=== PATIENT | female | born 1995 | race Caucasian/White ===

== ENCOUNTER 2023-11-15 14:56 | Emergency (ER) | payer BC, OTHER ==
[2023-11-15] MEDS ORDERED: LIDOCAINE 2% W/EPI 1:200,000 MPF 20 ML VIAL IM ONE (17:11)
[2023-11-15] MEDS ORDERED: TDAP (DIPHTH,PERTUSS(ACELL),TET VAC) 0.5 ML VIAL IMVAC ONE (17:26)
--- NOTE | 2023-11-15 21:05 | EDPHYS ---
Physician Documentation [facility] Name: Chinyere Hunt Age: 28 yrs Sex: Female : 1995 Arrival Date: 11/15/2023 Time: 14:56 Bed IW2 Private MD: ED Physician Stuart Ramirez HPI: 11/14 15:45 This 28 yrs old Female presents to ER via Ambulatory with complaints of Hit With Tree cp Limb. 15:45 The patient or guardian reports injury, a laceration. The complaints affect the left cp side of the back of head. Context of injury: resulted from fallen tree limb. Onset: The symptoms/episode began/occurred just prior to arrival. Associated signs and symptoms: Loss of consciousness: This patient did not experience any loss of consciousness. Pertinent positives: headache, nausea, Pertinent negatives: neck pain, vomiting, weakness in extremities, generalized weakness. Historical: - Allergies: 15:25 Sulfa (Sulfonamide Antibiotics); as6 - PMHx: 15:25 None; as6 - PSHx: 15:25 ankle; as6 - Immunization history:: Adult Immunizations up to date. - Infectious Disease History:: Denies. - Social history:: Smoking status: Reported history of juuling and/or vaping. ROS: 15:50 Skin: Positive for laceration(s), of the scalp, cp 15:50 Constitutional: HX per HPI cp 15:50 Constitutional: Negative for fever, 15:50 Abdomen/GI: Positive for nausea, Negative for vomiting, 15:50 Neuro: Positive for headache, 15:50 All other systems are negative, Exam: 15:55 Constitutional: The patient appears in no acute distress, alert, awake, non-toxic, well cp developed, well nourished, 15:55 Head/face: Noted is a laceration(s), that is linear, of the left side of the back of cp head, 15:55 Eyes: Periorbital structures: appear normal, Pupils: equal, round, and reactive to light and accomodation, Extraocular movements: intact throughout, Lids and lashes: appear normal, bilaterally, 15:55 ENT: External ear(s): are unremarkable, Nose: is normal, Mouth: Lips: moist, Oral mucosa: pink and intact, moist, 15:55 Neck: C-spine: vertebral tenderness, is not appreciated, crepitus, is not appreciated, ROM/movement: is normal, is supple, without pain, no range of motions limitations, 15:55 Chest/axilla: Inspection: normal, 15:55 Cardiovascular: Rate: normal, 15:55 Respiratory: the patient does not display signs of respiratory distress, Respirations: normal, no use of accessory muscles, no retractions, labored breathing, is not present, 15:55 Neuro: Orientation: to person, place \T\ time. Mentation: is normal, Motor: moves all fours, strength is normal, Sensation: is normal, Gait: is steady, at a normal pace, without difficulty, Vital Signs: 15:24 BP 137 / 75; Pulse 81; Resp 16; Temp 97.9; Pulse Ox 98% on R/A; Weight 77.11 kg; Height as6 5 ft. 5 in. ; Pain 5/10; 15:24 Body Mass Index 28.29 (77.11 kg, 165.1 cm) as6 15:24 Pain Scale: Adult as6 [place] Coma Score: 15:45 Eye Response: spontaneous(4). Motor Response: obeys commands(6). Verbal Response: cp oriented(5). Total: 15. MDM: 15:30 Patient medically screened. cp 18:20 Data reviewed: vital signs, nurses notes, and as a result, I will discharge patient. cp 18:20 I considered the following discharge prescriptions or medication management in the emergency department Medications were administered in the Emergency Department. See MAR. Counseling: I had a detailed discussion with the patient and/or guardian regarding the historical points, exam findings, and any diagnostic results supporting the discharge/admit diagnosis, to return to the emergency department if symptoms worsen or persist or if there are any questions or concerns that arise at home. Response to treatment: the patient's symptoms have markedly improved after treatment, and as a result, I will discharge patient. Special discussion: Based on the patient's history, exam and DX evaluation, there is no indication for emergent intervention or inpatient TX. It is understood by the patient/guardian that if the SXs persist or worsen they need to return immediately for re-evaluation. 11/14 15:31 Order name: Wound Care; Complete Time: 18:16 cp Administered Medications: 17:12 Drug: Lidocaine Infiltration (2 %) 5 ml 5 ml Infiltration once; to bedside Volume: 5 cm10 ml; Route: Infiltration; 17:32 Drug: Boostrix Tdap IM 0.5 ml IM once; as a single dose Route: IM; Site: left deltoid; cm10 17:40 Follow up: Response: (VIS) Vaccine information sheet provided today. Questions and/or cm10 concerns addressed. VIS edition date: Dec 12, 2020.; No adverse reaction 18:17 Not Given (Physician Discretion): [id number] mg PO once cm10 Disposition Summary: 11/15/23 18:21 Discharge Ordered Notes: Location: Home cp Problem: new cp Symptoms: have improved cp Condition: Stable cp Diagnosis - Laceration without foreign body of scalp cp Followup: cp - With: Private Physician - When: 7 - 10 days - Reason: Staple/Suture removal Discharge Instructions: - Discharge Summary Sheet cp - Head Injury, Adult cp - Laceration Care, Adult cp - Sutures, [place], or Adhesive Wound Closure cp Forms: - Medication Reconciliation Form cp - Antibiotic Education cp - Prescription Opioid Use cp - Patient Portal Instructions cp - Leadership Thank You Letter cp Addendum: 11/18/2023 17:01 I was immediately available on-site in the Emergency Department for consultation in the m s3 care of the patient. Signatures: Cj Sorto PA PA cp Sims, Marcus, DO DO ms3 Davidson Arias, RN RN as6 Merle Luo RN RN cm10
--- NOTE | 2023-11-15 21:05 | ER ---
Nurse's Notes [facility] Name: Chinyere Hunt Age: 28 yrs Sex: Female : 1995 Arrival Date: 11/15/2023 Time: 14:56 Bed IW2 Private MD: Diagnosis: Laceration without foreign body of scalp Presentation: 11/14 15:24 Chief complaint: Patient states: pt was out side cleaning and a tree limb fell on her as6 head. no LOC. Coronavirus screen: At this time, the client does not indicate any symptoms associated with coronavirus-19. Ebola Screen: No symptoms or risks identified at this time. Initial Sepsis Screen: Does the patient meet any 2 criteria? No. Patient's initial sepsis screen is negative. Does the patient have a suspected source of infection? No. Patient's initial sepsis screen is negative. Risk Assessment: Do you want to hurt yourself or someone else? Patient reports no desire to harm self or others. Onset of symptoms was November 15, 2023. 15:24 Acuity: SABINE 4 as6 15:24 Method Of Arrival: Ambulatory as6 Triage Assessment: 15:26 General: Appears in no apparent distress. Behavior is calm, cooperative. Pain: as6 Complains of pain in head. Historical: - Allergies: 15:25 Sulfa (Sulfonamide Antibiotics); as6 - PMHx: 15:25 None; as6 - PSHx: 15:25 ankle; as6 - Immunization history:: Adult Immunizations up to date. - Infectious Disease History:: Denies. - Social history:: Smoking status: Reported history of juuling and/or vaping. Screenin:32 [facility] ED Fall Risk Assessment (Adult) History of falling in the last 3 months, cm10 including since admission No falls in past 3 months (0 pts) Confusion or Disorientation No (0 pts) Intoxicated or Sedated No (0 pts) Impaired Gait No (0 pts) Mobility Assist Device Used No (0 pt) Altered Elimination No (0 pt) Score/Fall Risk Level 0 - 2 = Low Risk Oriented to surroundings, Maintained a safe environment, Hourly rounding (assess needs \T\ fall precautionary measures) done. Abuse screen: Denies threats or abuse. Denies injuries from another. Nutritional screening: No deficits noted. Tuberculosis screening: No symptoms or risk factors identified. Assessment: 17:32 General: Appears in no apparent distress. comfortable, Behavior is calm, cooperative, cm10 appropriate for age. Neuro: No deficits noted. Level of Consciousness is awake, alert, obeys commands, Oriented to person, place, time, situation. Respiratory: No deficits noted. Airway is patent Respiratory effort is even, unlabored, Respiratory pattern is regular, symmetrical. Vital Signs: 15:24 BP 137 / 75; Pulse 81; Resp 16; Temp 97.9; Pulse Ox 98% on R/A; Weight 77.11 kg; Height as6 5 ft. 5 in. ; Pain 5/10; 15:24 Body Mass Index 28.29 (77.11 kg, 165.1 cm) as6 15:24 Pain Scale: Adult as6 [place] Coma Score: 15:45 Eye Response: spontaneous(4). Motor Response: obeys commands(6). Verbal Response: cp oriented(5). Total: 15. ED Course: 15:02 Patient arrived in ED. mg5 15:25 Cj Sorto PA is PHCP. cp 15:25 Stuart Ramirez DO is Attending Physician. cp 15:25 Triage completed. as6 15:26 Arm band placed on. as6 17:32 Patient has correct armband on for positive identification. Provided Education on: ER cm10 process and procedures.. Cardiac monitoring not applicable on this patient. 17:32 No provider procedures requiring assistance completed. Patient did not have IV access cm10 during this emergency room visit. Administered Medications: 17:12 Drug: Lidocaine Infiltration (2 %) 5 ml 5 ml Infiltration once; to bedside Volume: 5 cm10 ml; Route: Infiltration; 17:32 Drug: Boostrix Tdap IM 0.5 ml IM once; as a single dose Route: IM; Site: left deltoid; cm10 17:40 Follow up: Response: (VIS) Vaccine information sheet provided today. Questions and/or cm10 concerns addressed. VIS edition date: Dec 12, 2020.; No adverse reaction 18:17 Not Given (Physician Discretion): [id number] mg PO once cm10 Medication: 17:32 Vaccine Information Statement (VIS) provided today. Questions and/or concerns cm10 addressed. VIS edition date: December 12, 2020. Outcome: 18:19 Discharged to home ambulatory, with significant other, cm10 18:19 Condition: good 18:19 Discharge instructions given to patient, Instructed on discharge instructions, follow up and referral plans. wound care, Demonstrated understanding of instructions, follow-up care, medications, 18:21 Discharge ordered by . holli 18:22 Patient left the ED. cm10 Signatures: Cj Sorto PA PA cp Slawson, Ashby, RN RN as6 Merle Luo RN RN cm10 Sarahi Wilson 5
[2023-11-15 22:15] VITALS: BP 137/75; TEMP 97.9; O2SAT 98
== END 2023-11-15 18:22 | disposition home or self-care (01) ==
LOC: ER 14:56
DX: S01.01XA Laceration without foreign body of scalp, initial encounter (principal); W20.8XXA Other cause of strike by thrown, projected or falling object, initial encounter; Y93.89 Activity, other specified; Y92.017 Garden or yard in single-family (private) house as the place of occurrence of the external cause; F17.290 Nicotine dependence, other tobacco product, uncomplicated; Z23 Encounter for immunization; Z88.2 Allergy status to sulfonamides
CPT/HCPCS: 96372; 99284